=== PATIENT | female | born 1995 | race Caucasian/White ===

== ENCOUNTER 2018-06-12 23:20 | Inpatient (IN) | payer BC ==
[2018-06-13] MEDS ORDERED: LACTATED RINGER'S 1,000 ML IV (00:58)
[2018-06-13] MEDS ORDERED: BUTORPHANOL 2 MG INJ IV ×2 (01:00)
[2018-06-13] MEDS ORDERED: MISOPROSTOL 200 MCG TAB PR ×2 (01:00→07:00)
[2018-06-13] MEDS: MINERAL OIL LIGHT 10 ML VIAL TOP (01:00)
[2018-06-13] MEDS ORDERED: CARBOPROST 250 MCG INJ IM ×2 (01:00→07:00)
[2018-06-13] MEDS ORDERED: OXYTOCIN 30 UNITS/LR 500 ML IV ×2 (01:00→07:00)
[2018-06-13] MEDS: LACTATED RINGER'S 1,000 ML IV ×2 (01:41→08:24)
[2018-06-13] MEDS: AMPICILLIN 2 GM/NS (PMX) 100 ML IV (01:47)
[2018-06-13 01:59] LABS: ADD MAN DIFF? NO
[2018-06-13 02:01] LABS: WHITE BLOOD COUNT 9.8 10^3/ul (4.8-10.8)
[2018-06-13 02:01] LABS: BASOPHILS % 0.1 % (0.0-2.0); EOSINOPHILS % 0.4 % (0.0-7.0); HEMATOCRIT 29.8 % (37.0-47.0); LYMPHOCYTES # 2.3 10^3/ul (0.8-2.9); LYMPHOCYTES % 23.5 % (18.0-55.0); MEAN CORPUSCULAR HEMOGLOBIN 21.5 pg (29.0-33.0); MEAN CORPUSCULAR HGB CONC 30.2 g/dl (32.0-37.0); MEAN CORPUSCULAR VOLUME 71.1 fl (72.0-104.0); MEAN PLATELET VOLUME 9.8 fl (7.4-10.4); MONOCYTE # 0.7 10^3/ul (0.3-0.9); MONOCYTES % 6.6 % (0.0-13.0); NEUTROPHIL # 6.7 10^3/ul (1.6-7.5); NEUTROPHILS % 67.7 % (30.0-74.0); NUCLEATED RED BLOOD CELLS% 0.3 /100WBC (0.0-0.0); PLATELET COUNT 357 10^3/UL (140-415); RED BLOOD COUNT 4.19 10^6/ul (4.20-5.40)
[2018-06-13 02:20] LABS: INR 0.92; PROTIME 12.5 Sec (11.9-14.9)
[2018-06-13 02:21] LABS: PARTIAL THROMBOPLASTIN TIME 26.8 Sec (23.0-35.0)
[2018-06-13 02:50] LABS: AMPHETAMINE/METHAMPHETAMINE Negative (NEGATIVE); BARBITURATES Negative (NEGATIVE); BENZODIAZEPINES Negative (NEGATIVE); CANNABINOIDS Negative (NEGATIVE); COCAINE Negative (NEGATIVE); OPIATES Negative (NEGATIVE)
[2018-06-13 03:35] LABS: HEPATITIS B SURFACE ANTIGEN NEGATIVE (NEGATIVE)
[2018-06-13] MEDS: METHYLERGONOVINE 0.2 MG INJ IM (04:55)
[2018-06-13] MEDS: AMPICILLIN 1 GM/NS (PMX) 50 ML IV (05:00)
[2018-06-13] MEDS: OXYTOCIN 30 UNITS/LR 500 ML IV ×3 (05:03→06:38)
[2018-06-13] MEDS: LIDOCAINE 1% (MPF) 30 ML INJ INJ (05:03)
[2018-06-13] MEDS: IBUPROFEN 600 MG TAB PO ×4 (05:52→23:58)
[2018-06-13] MEDS ORDERED: SENNA/DOCUSATE NA (8.6MG/50MG) TAB PO (07:00)
[2018-06-13] MEDS ORDERED: NACL 0.9% 3 ML SYG IV (07:00)
[2018-06-13] MEDS ORDERED: METHYLERGONOVINE 0.2 MG INJ IM (07:00)
[2018-06-13] MEDS ORDERED: OXYCODONE/ASPIRIN (4.88/325) TAB PO (07:00)
[2018-06-13] MEDS ORDERED: ZOLPIDEM 5 MG TAB PO (07:00)
[2018-06-13] MEDS: SENNA/DOCUSATE NA (8.6MG/50MG) TAB PO ×2 (09:10→21:29)
[2018-06-13] MEDS: WITCH HAZEL/GLYCERIN PAD PR (11:26)
[2018-06-13] MEDS: LANOLIN HPA 1 PKT TOP (11:26)
[2018-06-13] MEDS: BENZOCAINE 20% 56 ML SPRAY TOP (11:26)
[2018-06-13 16:22] LABS: RAPID PLASMA REAGIN NONREACTIVE (NR)
[2018-06-14] MEDS: IBUPROFEN 600 MG TAB PO ×3 (05:50→17:19)
[2018-06-14 06:54] LABS: ADD MAN DIFF? NO
[2018-06-14 07:01] LABS: WHITE BLOOD COUNT 10.8 10^3/ul (4.8-10.8)
[2018-06-14 07:01] LABS: BASOPHILS % 0.1 % (0.0-2.0); EOSINOPHILS # 0.1 10^3/ul (0.0-0.5); EOSINOPHILS % 0.6 % (0.0-7.0); HEMATOCRIT 26.1 % (37.0-47.0); HEMOGLOBIN 7.6 g/dl (12.0-16.0); LYMPHOCYTES # 3.3 10^3/ul (0.8-2.9); LYMPHOCYTES % 30.4 % (18.0-55.0); MEAN CORPUSCULAR HEMOGLOBIN 20.8 pg (29.0-33.0); MEAN CORPUSCULAR HGB CONC 29.1 g/dl (32.0-37.0); MEAN CORPUSCULAR VOLUME 71.5 fl (72.0-104.0); MONOCYTE # 0.8 10^3/ul (0.3-0.9); MONOCYTES % 7.2 % (0.0-13.0); NEUTROPHIL # 6.5 10^3/ul (1.6-7.5); NEUTROPHILS % 59.9 % (30.0-74.0); NUCLEATED RED BLOOD CELLS% 0.2 /100WBC (0.0-0.0); PLATELET COUNT 301 10^3/UL (140-415); RED BLOOD COUNT 3.65 10^6/ul (4.20-5.40); RED CELL DISTRIBUTION WIDTH 19.1 % (11.5-14.5)
[2018-06-14] MEDS: SENNA/DOCUSATE NA (8.6MG/50MG) TAB PO ×2 (08:16→21:37)
[2018-06-14 10:10] LABS: RHOGAM PROFILE 1 1
[2018-06-15] MEDS: IBUPROFEN 600 MG TAB PO ×3 (00:03→12:18)
[2018-06-15] MEDS: DIPHTH/TET/ACEL PERTUSS (ADULT) 0.5 ML VIAL IM* (09:00)
[2018-06-15] MEDS: SENNA/DOCUSATE NA (8.6MG/50MG) TAB PO (10:02)
[2018-06-16 09:41] LABS: RUBELLA ANTIBODY - IGG 1.16 index
[2018-06-16 12:01] LABS: RUBELLA ANTIBODY - IGG 1.14 index
[2018-06-16 13:42] LABS: RUBELLA ANTIBODY - IGM <20.00 AU/mL
== END 2018-06-15 15:35 | disposition home or self-care (01) | DRG 807 ==
LOC: OBT 23:20 → L-D 06-13 00:54 → PP1 06-13 06:37 → L-D 23:20
PROVIDERS: Pediatrics Neonatal-Perinatal Medicine
PROC: 10E0XZZ Delivery of Products of Conception, External Approach (ICD-10-PCS; principal; 2018-06-14)
PROC: 0HQ9XZZ Repair Perineum Skin, External Approach (ICD-10-PCS; 2018-06-14)
DX: O70.9 Perineal laceration during delivery, unspecified (principal); Z37.0 Single live birth; Z3A.38 38 weeks gestation of pregnancy
CPT/HCPCS: 76815; 80307; 85025; 85610; 85730; 86592; 86762; 86850; 86870; 86885; 86900; 86901; 87340